=== PATIENT | male | born 1985 | race African-American/Black ===

== ENCOUNTER 2016-10-28 07:59 | Outpatient (RCR) | payer OTHER ==
[~2016-10-28 07:59] MED LIST: AMOXICILLIN 50500 MG PO; ATARAX 25MG25 MG/TAB PO; CIPRO 500MG TA500 MG PO; FLEXERIL 1010 MG/TAB PO; PREDNISONE20 MG PO
== END 2016-11-15 11:19 ==
LOC: WSOH 07:59
DX: S46.011A Strain of muscle(s) and tendon(s) of the rotator cuff of right shoulder, initial encounter (principal); X50.0XXA Overexertion from strenuous movement or load, initial encounter; Y99.0 Civilian activity done for income or pay

== ENCOUNTER 2018-08-11 14:35 | Emergency (ER) | payer BC ==
[~2018-08-11] VITALS: Ht 175.3 cm; Wt 104.5 kg
[~2018-08-11 14:35] MED LIST changes: +NORCO 325 MG-51 TAB PO
[2018-08-11 14:39] VITALS: BP 130/66; TEMP 97.7
[2018-08-11 14:54] LABS: COLLECTION METHOD CLEAN CATCH
[2018-08-11 15:05] LABS: MUCOUS Present /lpf; PH 5 (5-8); SQUAMOUS EPITHELIAL None Seen /hpf; URINE APPEARANCE Clear; URINE BACTERIA None Seen /hpf; URINE BILIRUBIN Negative (NEGATIVE); URINE BLOOD Negative (NEGATIVE); URINE COLOR Yellow; URINE GLUCOSE Negative (NEGATIVE); URINE KETONE Negative (NEGATIVE); URINE LEUKOCYTE ESTERASE Negative (NEGATIVE); URINE NITRATE Negative (NEGATIVE); URINE PROTEIN(semi-quant) Negative (NEGATIVE); URINE RBC 0-2 /hpf; URINE UROBILINOGEN Negative (NEGATIVE)
[2018-08-11 15:32] VITALS: PULSE 85
== END 2018-08-11 15:32 | disposition home or self-care (01) ==
LOC: COL.ER 14:35
PROVIDERS: Physician Assistant
DX: R30.0 Dysuria (principal)

== ENCOUNTER 2018-10-28 16:02 | Emergency (ER) | payer BC ==
[~2018-10-28] VITALS: Ht 172.7 cm; Wt 104.5 kg
[2018-10-28 16:10] VITALS: TEMP 98
[2018-10-28 18:27] VITALS: BP 121/74; PULSE 73
== END 2018-10-28 18:27 | disposition home or self-care (01) ==
LOC: COL.ER 16:02
DX: K62.5 Hemorrhage of anus and rectum (principal)

== ENCOUNTER 2018-12-23 07:55 | Emergency (ER) | payer BC ==
[~2018-12-23] VITALS: Ht 175.3 cm; Wt 104.5 kg
[2018-12-23] MEDS ORDERED: CRUTCHES MC (09:32)
[2018-12-23 09:57] VITALS: BP 136/80; PULSE 88; TEMP 98.1
== END 2018-12-23 10:07 | disposition home or self-care (01) ==
LOC: COL.ER 07:55
DX: S92.901A Unspecified fracture of right foot, initial encounter for closed fracture (principal); Z87.891 Personal history of nicotine dependence; X50.1XXA Overexertion from prolonged static or awkward postures, initial encounter; W10.9XXA Fall (on) (from) unspecified stairs and steps, initial encounter; Y92.009 Unspecified place in unspecified non-institutional (private) residence as the place of occurrence of the external cause
CPT/HCPCS: Q4045

== ENCOUNTER 2019-06-03 18:25 | Emergency (ER) | payer SELFPAY ==
[~2019-06-03] VITALS: Ht 175.3 cm; Wt 97.7 kg
[~2019-06-03 18:25] MED LIST changes: +CRUTCHES MC
[2019-06-03 19:34] LABS: COLLECTION METHOD CLEAN CATCH
[2019-06-03 19:42] LABS: PH 5 (5-8); SQUAMOUS EPITHELIAL None Seen /hpf; URINE APPEARANCE Clear; URINE BACTERIA None Seen /hpf; URINE BILIRUBIN Negative (NEGATIVE); URINE BLOOD Negative (NEGATIVE); URINE COLOR Yellow; URINE GLUCOSE Negative (NEGATIVE); URINE KETONE Negative (NEGATIVE); URINE LEUKOCYTE ESTERASE Negative (NEGATIVE); URINE NITRATE Negative (NEGATIVE); URINE PROTEIN(semi-quant) Negative (NEGATIVE); URINE RBC 0-2 /hpf; URINE UROBILINOGEN Negative (NEGATIVE)
[2019-06-03 21:33] VITALS: BP 124/84; PULSE 83; TEMP 98.1
[2019-06-03] MEDS ORDERED: PROTONIX 40MG T40 MG PO (21:47)
== END 2019-06-03 21:56 ==
LOC: COL.ER 18:25
PROVIDERS: Emergency Medicine
DX: K21.9 Gastro-esophageal reflux disease without esophagitis (principal); A54.9 Gonococcal infection, unspecified; R05 Cough
CPT/HCPCS: J0696